=== PATIENT | female | born 1985 | race American Indian/Alaskan Native ===

== ENCOUNTER 2017-08-23 07:31 | Emergency (ER) | payer OTHER ==
[2017-08-23 07:49] VITALS: BP 116/76
[2017-08-23 08:14] LABS: Basophils % (Auto) 1.4 % (0.0-1.8); Eosinophils % (Auto) 2.9 % (0.0-4.3); Hematocrit 38.8 % (30.3-42.9); Hemoglobin 12.7 gm/dl (10.1-14.3); Mean Corpuscular HGB Conc 33 % (30-34); Mean Corpuscular Hemoglobin 29 pg (28-32); Mean Corpuscular Volume 89 fl (79-97); Platelet Count 258 K/mm3 (140-440); Red Blood Count 4.37 M/mm3 (3.65-5.03); Red Cell Distribution Width 14.9 % (13.2-15.2); White Blood Count 4.2 K/mm3 (4.5-11.0)
[2017-08-23 08:40] LABS: Alanine Aminotransferase 11 units/L (7-56); Albumin 4.4 g/dL (3.9-5); Albumin/Globulin Ratio 1.2 %; Anion Gap 18 mmol/L; BUN/Creatinine Ratio 10; Blood Urea Nitrogen 6 mg/dL (7-17); Calcium 9.1 mg/dL (8.4-10.2); Carbon Dioxide 26 mmol/L (22-30); Chloride 102.3 mmol/L (98-107); Glucose 107 mg/dL (65-100); Lipase 22 units/L (13-60); Potassium 3.6 mmol/L (3.6-5.0); Sodium 143 mmol/L (137-145)
[2017-08-23 10:07] LABS: Alkaline Phosphatase 61 units/L (35-129)
== END 2017-08-23 09:05 | disposition left against medical advice (07) ==
LOC: ED 07:31
DX: R11.10 Vomiting, unspecified (principal); Z53.21 Procedure and treatment not carried out due to patient leaving prior to being seen by health care provider
CPT/HCPCS: 36415; 80053; 83690; 84703; 85025

== ENCOUNTER 2019-08-02 12:54 | Inpatient (IN) | payer MEDICAID, OTHER ==
[2019-08-02] MEDS ORDERED: TERBUTALINE 1 MG/1 ML INJ SUB-Q PRN (14:14)
[2019-08-02] MEDS ORDERED: LIDOCAINE (2%) 20 MG/1 ML VIAL 20 ML MDV INFILTRATI ONE (14:14)
[2019-08-02] MEDS ORDERED: ePHEDrine SULFATE 50 MG/1 ML INJ IV PRN ×2 (14:14→14:17)
[2019-08-02] MEDS ORDERED: TERBUTALINE 1 MG/1 ML INJ IVP PRN (14:14)
[2019-08-02] MEDS ORDERED: MINERAL OIL 30 ML ORAL LIQD PO PRN (14:14)
[2019-08-02] MEDS ORDERED: ONDANSETRON 4 MG/2 ML INJ IV PRN (14:17)
[2019-08-02] MEDS ORDERED: BUTORPHANOL 2 MG/1 ML INJ IV PRN (14:17)
[2019-08-02] MEDS ORDERED: NALOXONE 0.4 MG/1 ML INJ IV PRN (14:17)
[2019-08-02] MEDS ORDERED: LACTATED RINGERS 1,000 ML IV SCH (15:00)
[2019-08-02] MEDS ORDERED: OXYTOCIN DRIP 30 UNITS/500 ML BAG IV SCH (15:00)
[2019-08-02 15:01] LABS: Hematocrit 31.6 % (30.3-42.9); Hemoglobin 9.8 gm/dl (10.1-14.3); Mean Corpuscular HGB Conc 31 % (30-34); Mean Corpuscular Volume 73 fl (79-97); Platelet Count 213 K/mm3 (140-440); Red Blood Count 4.34 M/mm3 (3.65-5.03); Red Cell Distribution Width 17.8 % (13.2-15.2)
--- NOTE | 2019-08-02 15:46 | History and Physical Report ---
History of Present Illness Date of examination: 08/02/19 Date of admission: 08/02/19 13:02 Chief complaint: Early Labor History of present illness: Early entry to care; course complicated by LGSIL pap, Vitamin D Deficiency, and a Increased risk for SMA. Past History Past Medical History: no pertinent history [employer] History: abnormal PAP smear, trichomonas Family/Genetic History: diabetes, hypertension Social history: no significant social history, single - Obstetrical History Expected Date of Delivery: 08/07/19 Actual Gestation: 39 Week(s) 2 Day(s) : 2 Para: 1 Hx # Term Pregnancies: 1 Number of Living Children: 1 #1 Infant Gender: Male year: Birthweight: 3.742 kg Method of Delivery: Vaginal Gestational age at delivery: 40 Complications: none Medications and Allergies Allergies Allergy/AdvReac Type Severity Reaction Status Date / Time No Known Allergies Allergy Verified 08/02/19 14:19 Home Medications Medication Instructions Recorded Confirmed Last Taken Type HYDROcodone/APAP 5-325 [[place] 1 each PO Q6HR PRN #12 tablet 03/26/15 Unknown Rx 5/325] Promethazine [Phenergan] 25 mg PO Q6H PRN #12 tablet 03/26/15 Unknown Rx Active Meds: Active Medications Butorphanol Tartrate (Stadol) 2 mg IV Q2H PRN PRN Reason: Pain , Severe (7-10) Ephedrine Sulfate (Ephedrine Sulfate) 10 mg IV Q2M PRN PRN Reason: Hypotension Ephedrine Sulfate (Ephedrine Sulfate) 10 mg IV Q2M PRN PRN Reason: Hypotension Oxytocin/Sodium Chloride (Pitocin/Ns 20 Unit/1000ml Drip) 20 units in 1,000 mls @ 125 mls/hr IV DIRECT KATIE Oxytocin/Sodium Chloride (Pitocin/Ns 30 Unit/500ml) 30 units in 500 mls @ 4 mls/hr IV TITR KATIE; Protocol Lactated Ringer's (Lactated Ringers) 1,000 mls @ 125 mls/hr IV DIRECT KATIE Mineral Oil (Mineral Oil) 30 ml PO QHS PRN PRN Reason: Constipation Naloxone HCl (Narcan 0.4 Mg/1 Ml) 0.1 mg IV Q2MIN PRN PRN Reason: Res Rate </= 8 or 02 SAT < 92% Ondansetron HCl (Zofran) 4 mg IV Q8H PRN PRN Reason: Nausea And Vomiting Terbutaline Sulfate (Brethine) 0.25 mg SUB-Q ONCE PRN PRN Reason: Hyperstimulation/Hypertonicity Terbutaline Sulfate (Brethine) 0.25 mg IVP ONCE PRN PRN Reason: Hyperstimulation/Hypertonicity Review of Systems All systems: negative - Vital Signs Vital signs: Vital Signs Pulse BP 121 H 127/82 08/02/19 13:37 08/02/19 13:37 Temp Pulse Resp BP Pulse Ox 97.9 F 109 H 16 127/79 08/02/19 15:00 08/02/19 14:50 08/02/19 15:00 08/02/19 14:50 - Physical Exam Breasts: Positive: normal Cardiovascular: Regular rate Lungs: Positive: Clear to auscultation, Normal air movement Abdomen: Positive: normal appearance, soft, normal bowel sounds Genitourinary (Female): Positive: normal external genitalia, normal perenium Vagina: Positive: normal moisture Uterus: Positive: enlarged Anus/Rectum: Positive: normal perianal skin Extremities: Positive: normal - Obstetrical FHR: category 1 Uterine Contraction Monitor Mode: External Cervical Dilatation: 5 (Intact; VTX) Cervical Effacement Percentage: 90 station: -1 Uterine Contraction Pattern: Irregular Uterine Tone Measurement Phase: Resting Uterine Contraction Intensity: Moderate Results Result Diagrams: 08/02/19 14:33 Abnormal lab results 08/02/19 Range/Units 14:33 Hgb 9.8 L (10.1-14.3) gm/dl MCV 73 L (79-97) fl MCH 23 L (28-32) pg RDW 17.8 H (13.2-15.2) % All other labs normal. Assessment and Plan A: IUP @ 39 2/7 weeks Category I Tracing Early Labor GBS Negative P: Admit to L&D per Routine Orders Pitocin Augmentation
[2019-08-03] MEDS ORDERED: ePHEDrine SULFATE 50 MG/1 ML INJ IV PRN (02:56)
[2019-08-03] MEDS ORDERED: NALOXONE 2 MG/2 ML INJ IV PRN (02:56)
--- NOTE | 2019-08-03 02:59 | Anesthesia Consultation ---
Anesthesia Consult and Med Hx Date of service: 08/03/19 - Airway Anesthetic Teeth Evaluation: Good ROM Head & Neck: Adequate Mental/Hyoid Distance: Adequate Mallampati Class: Class II Intubation Access Assessment: Probably Good - Pulmonary Exam CTA: Yes - Cardiac Exam Cardiac Exam: RRR - Pre-Operative Health Status ASA Pre-Surgery Classification: ASA2 Proposed Anesthetic Plan: Epidural - Pulmonary Hx Smoking: No Hx Asthma: No Hx Respiratory Symptoms: No SOB: No COPD: No Home Oxygen Therapy: No Hx Pneumonia: No Hx Sleep Apnea: No - Cardiovascular System Hx Hypertension: No Hx Coronary Artery Disease: No Hx Heart Attack/AMI: No Hx Angina: No Hx Percutaneous Transluminal Coronary Angioplasty (PTCA): No Hx Cardia Arrhythmia: No Hx Pacemaker: No Hx Internal Defibrillator: No Hx Valvular Heart Disease: No Hx Heart Murmur: No Hx Peripheral Vascular Disease: No - Central Nervous System Hx Neuromuscular Disorder: No Hx Seizures: No CVA: No Hx Back Pain: Yes (history of scoliosis) Hx Psychiatric Problems: No - Gastrointestinal Hx Ulcer: No Hx Gastroesophageal Reflux Disease: Yes - Endocrine Hx Renal Disease: No Hx End Stage Renal Disease: No Hx Cirrhosis: No Hx Liver Disease: No Hx Insulin Dependent Diabetes: No Hx Non-Insulin Dependent Diabetes: No Hx Thyroid Disease: No Hx Hypothyroidism: No Hx Hyperthyroidism: No - Hematic Hx Anemia: No Hx Sickle Cell Disease: No - Other Systems Hx Alcohol Use: No Hx Substance Use: No Hx Cancer: No Hx Obesity: No
[2019-08-03] MEDS ORDERED: fentaNYL-BUPIV 2 MCG/ML-0.125% 200 MCG/100 ML BAG EPIDURAL SCH (03:00)
--- NOTE | 2019-08-03 05:48 | Progress Note ---
Assessment and Plan A: IUP @ 39 3/7 weeks Category I Tracing Early Labor GBS Negative P: AROM Continue Pitocin Augmentation Subjective - Subjective Date of service: 08/03/19 Interval history: Early entry to care; course complicated by LGSIL pap, Vitamin D Deficiency, and a Increased risk for SMA. Patient reports: other (Resting Well Under Epidural) Objective - Vital Signs Vital Signs: Vital Signs - 12hr 08/02/19 08/02/19 08/02/19 19:20 19:24 19:29 Temperature 99.0 F Pulse Rate 111 H 111 H 119 H Respiratory 22 Rate Blood Pressure 130/84 Blood Pressure 130/84 [Left] O2 Sat by Pulse 100 99 Oximetry 08/02/19 08/02/19 08/02/19 19:34 19:39 19:44 Temperature Pulse Rate 104 H 111 H 120 H Respiratory Rate Blood Pressure Blood Pressure [Left] O2 Sat by Pulse 100 99 100 Oximetry 08/02/19 08/02/19 08/02/19 19:49 19:54 20:19 Temperature Pulse Rate 111 H 104 H 106 H Respiratory Rate Blood Pressure Blood Pressure [Left] O2 Sat by Pulse 100 100 99 Oximetry 08/02/19 08/02/19 08/02/19 20:24 20:29 20:34 Temperature Pulse Rate 105 H 115 H 114 H Respiratory Rate Blood Pressure Blood Pressure [Left] O2 Sat by Pulse 100 100 99 Oximetry 08/02/19 08/02/19 08/02/19 20:39 20:44 20:49 Temperature Pulse Rate 107 H 103 H 106 H Respiratory Rate Blood Pressure 131/83 Blood Pressure [Left] O2 Sat by Pulse 100 100 100 Oximetry 08/02/19 08/02/19 08/02/19 20:54 20:59 21:04 Temperature Pulse Rate 102 H 100 H 101 H Respiratory Rate Blood Pressure Blood Pressure [Left] O2 Sat by Pulse 100 100 100 Oximetry 08/02/19 08/02/19 08/02/19 21:09 21:14 21:19 Temperature Pulse Rate 91 H 97 H 103 H Respiratory Rate Blood Pressure Blood Pressure [Left] O2 Sat by Pulse 100 100 100 Oximetry 08/02/19 08/02/19 08/02/19 21:20 21:24 21:29 Temperature Pulse Rate 102 H 100 H 99 H Respiratory Rate Blood Pressure 130/84 Blood Pressure [Left] O2 Sat by Pulse 100 100 Oximetry 08/02/19 08/02/19 08/02/19 21:34 21:39 21:44 Temperature Pulse Rate 97 H 109 H 109 H Respiratory Rate Blood Pressure Blood Pressure [Left] O2 Sat by Pulse 100 99 99 Oximetry 08/02/19 08/02/19 08/02/19 21:49 21:54 21:59 Temperature Pulse Rate 101 H 98 H 102 H Respiratory Rate Blood Pressure 133/84 Blood Pressure [Left] O2 Sat by Pulse 100 100 99 Oximetry 08/02/19 08/02/19 08/02/19 22:08 22:13 22:18 Temperature Pulse Rate 103 H 106 H 97 H Respiratory Rate Blood Pressure Blood Pressure [Left] O2 Sat by Pulse 99 96 96 Oximetry 08/02/19 08/02/19 08/02/19 22:19 22:23 22:28 Temperature Pulse Rate 89 95 H 87 Respiratory Rate Blood Pressure 131/78 Blood Pressure [Left] O2 Sat by Pulse 98 95 Oximetry 08/02/19 08/02/19 08/02/19 22:32 22:33 22:38 Temperature Pulse Rate 92 H 86 85 Respiratory Rate Blood Pressure Blood Pressure [Left] O2 Sat by Pulse 91 97 98 Oximetry 08/02/19 08/02/19 08/02/19 22:43 22:48 22:49 Temperature Pulse Rate 88 83 86 Respiratory Rate Blood Pressure 125/69 Blood Pressure [Left] O2 Sat by Pulse 97 97 Oximetry 08/02/19 08/02/19 08/02/19 22:53 22:58 23:02 Temperature Pulse Rate 90 82 85 Respiratory Rate Blood Pressure Blood Pressure [Left] O2 Sat by Pulse 97 95 94 Oximetry 08/02/19 08/02/19 08/02/19 23:03 23:08 23:13 Temperature Pulse Rate 82 82 83 Respiratory Rate Blood Pressure Blood Pressure [Left] O2 Sat by Pulse 96 96 97 Oximetry 08/02/19 08/02/19 08/02/19 23:18 23:19 23:23 Temperature Pulse Rate 80 77 82 Respiratory Rate Blood Pressure 135/66 Blood Pressure [Left] O2 Sat by Pulse 96 94 96 Oximetry 08/02/19 08/02/19 08/02/19 23:28 23:33 23:38 Temperature Pulse Rate 78 76 81 Respiratory Rate Blood Pressure Blood Pressure [Left] O2 Sat by Pulse 97 96 96 Oximetry 08/02/19 08/02/19 08/02/19 23:43 23:48 23:49 Temperature Pulse Rate 83 79 78 Respiratory Rate Blood Pressure Blood Pressure [Left] O2 Sat by Pulse 96 96 94 Oximetry 08/02/19 08/02/19 08/02/19 23:50 23:53 23:58 Temperature Pulse Rate 85 78 78 Respiratory Rate Blood Pressure 118/71 Blood Pressure [Left] O2 Sat by Pulse 98 98 Oximetry 08/03/19 08/03/19 08/03/19 00:03 00:08 00:13 Temperature Pulse Rate 90 87 79 Respiratory Rate Blood Pressure Blood Pressure [Left] O2 Sat by Pulse 97 97 97 Oximetry 08/03/19 08/03/19 08/03/19 00:18 00:19 00:23 Temperature Pulse Rate 87 82 88 Respiratory Rate Blood Pressure 121/74 Blood Pressure [Left] O2 Sat by Pulse 97 100 Oximetry 08/03/19 08/03/19 08/03/19 00:28 00:33 00:38 Temperature Pulse Rate 80 83 82 Respiratory Rate Blood Pressure Blood Pressure [Left] O2 Sat by Pulse 97 98 96 Oximetry 08/03/19 08/03/19 08/03/19 00:43 00:48 00:49 Temperature Pulse Rate 82 89 85 Respiratory Rate Blood Pressure 121/67 Blood Pressure [Left] O2 Sat by Pulse 98 97 Oximetry 08/03/19 08/03/19 08/03/19 00:53 00:58 01:03 Temperature Pulse Rate 92 H 89 94 H Respiratory Rate Blood Pressure Blood Pressure [Left] O2 Sat by Pulse 97 97 99 Oximetry 08/03/19 08/03/19 08/03/19 01:08 01:13 01:18 Temperature Pulse Rate 83 91 H 87 Respiratory Rate Blood Pressure Blood Pressure [Left] O2 Sat by Pulse 98 98 98 Oximetry 08/03/19 08/03/19 08/03/19 01:20 01:23 01:28 Temperature Pulse Rate 79 89 85 Respiratory Rate Blood Pressure 127/73 Blood Pressure [Left] O2 Sat by Pulse 97 97 Oximetry 08/03/19 08/03/19 08/03/19 01:33 01:38 01:43 Temperature Pulse Rate 89 89 108 H Respiratory Rate Blood Pressure Blood Pressure [Left] O2 Sat by Pulse 96 97 96 Oximetry 08/03/19 08/03/19 08/03/19 01:48 01:49 01:53 Temperature Pulse Rate 87 93 H 85 Respiratory Rate Blood Pressure 136/89 Blood Pressure [Left] O2 Sat by Pulse 97 97 Oximetry 08/03/19 08/03/19 08/03/19 01:58 02:03 02:08 Temperature Pulse Rate 92 H 87 98 H Respiratory Rate Blood Pressure Blood Pressure [Left] O2 Sat by Pulse 98 97 98 Oximetry 08/03/19 08/03/19 08/03/19 02:13 02:18 02:23 Temperature Pulse Rate 98 H 84 92 H Respiratory Rate Blood Pressure Blood Pressure [Left] O2 Sat by Pulse 100 100 100 Oximetry 08/03/19 08/03/19 08/03/19 02:28 02:33 02:38 Temperature Pulse Rate 100 H 92 H 92 H Respiratory Rate Blood Pressure Blood Pressure [Left] O2 Sat by Pulse 100 100 100 Oximetry 08/03/19 08/03/19 08/03/19 02:40 02:41 02:43 Temperature Pulse Rate 102 H 81 102 H Respiratory Rate Blood Pressure 138/72 131/69 Blood Pressure [Left] O2 Sat by Pulse 75 L 100 Oximetry 08/03/19 08/03/19 08/03/19 02:46 02:48 02:49 Temperature Pulse Rate 93 H 119 H 120 H Respiratory Rate Blood Pressure 131/72 129/70 Blood Pressure [Left] O2 Sat by Pulse 100 Oximetry 08/03/19 08/03/19 08/03/19 02:52 02:53 02:55 Temperature Pulse Rate 114 H 122 H 117 H Respiratory Rate Blood Pressure 135/71 155/80 Blood Pressure [Left] O2 Sat by Pulse 100 Oximetry 08/03/19 08/03/19 08/03/19 02:58 03:01 03:03 Temperature Pulse Rate 106 H 108 H 100 H Respiratory Rate Blood Pressure 141/68 126/66 Blood Pressure [Left] O2 Sat by Pulse 100 100 Oximetry 08/03/19 08/03/19 08/03/19 03:04 03:07 03:08 Temperature Pulse Rate 98 H 90 90 Respiratory Rate Blood Pressure 131/65 132/69 Blood Pressure [Left] O2 Sat by Pulse 99 Oximetry 08/03/19 08/03/19 08/03/19 03:10 03:13 03:18 Temperature Pulse Rate 104 H 87 85 Respiratory Rate Blood Pressure 131/76 123/68 Blood Pressure [Left] O2 Sat by Pulse 100 99 Oximetry 08/03/19 08/03/19 08/03/19 03:23 03:28 03:33 Temperature Pulse Rate 88 89 92 H Respiratory Rate Blood Pressure 120/65 Blood Pressure [Left] O2 Sat by Pulse 98 98 97 Oximetry 08/03/19 08/03/19 08/03/19 03:38 03:43 03:48 Temperature Pulse Rate 87 90 94 H Respiratory Rate Blood Pressure 116/62 Blood Pressure [Left] O2 Sat by Pulse 97 97 97 Oximetry 08/03/19 08/03/19 08/03/19 03:53 03:58 04:00 Temperature Pulse Rate 94 H 86 88 Respiratory Rate Blood Pressure 116/60 Blood Pressure [Left] O2 Sat by Pulse 97 96 Oximetry 08/03/19 08/03/19 08/03/19 04:03 04:08 04:13 Temperature Pulse Rate 90 86 92 H Respiratory Rate Blood Pressure 114/59 Blood Pressure [Left] O2 Sat by Pulse 96 95 96 Oximetry 08/03/19 08/03/19 08/03/19 04:18 04:23 04:28 Temperature Pulse Rate 105 H 94 H 90 Respiratory Rate Blood Pressure 114/57 Blood Pressure [Left] O2 Sat by Pulse 97 97 98 Oximetry 08/03/19 08/03/19 08/03/19 04:30 04:33 04:38 Temperature 97.7 F Pulse Rate 80 88 Respiratory Rate Blood Pressure Blood Pressure [Left] O2 Sat by Pulse 97 97 Oximetry 08/03/19 08/03/19 08/03/19 04:43 04:48 04:53 Temperature Pulse Rate 90 108 H 83 Respiratory Rate Blood Pressure 114/63 Blood Pressure [Left] O2 Sat by Pulse 96 98 100 Oximetry 08/03/19 08/03/19 08/03/19 04:58 05:03 05:08 Temperature Pulse Rate 89 85 82 Respiratory Rate Blood Pressure Blood Pressure [Left] O2 Sat by Pulse 100 100 98 Oximetry 08/03/19 08/03/19 08/03/19 05:13 05:18 05:23 Temperature Pulse Rate 83 83 85 Respiratory Rate Blood Pressure Blood Pressure [Left] O2 Sat by Pulse 97 96 96 Oximetry 08/03/19 08/03/19 08/03/19 05:25 05:28 05:33 Temperature Pulse Rate 88 80 81 Respiratory Rate Blood Pressure 100/61 Blood Pressure [Left] O2 Sat by Pulse 97 96 Oximetry 08/03/19 08/03/19 05:38 05:43 Temperature Pulse Rate 104 H 97 H Respiratory Rate Blood Pressure Blood Pressure [Left] O2 Sat by Pulse 99 100 Oximetry - Exam Breasts: normal Cardiovascular: Regular rate Lungs: Clear to auscultation, Normal air movement Abdomen: Present: normal appearance, soft, normal bowel sounds Uterus: Present: normal, firm, fundal height above umbilicus FHR: category 1 Uterine Contraction Monitor Mode: External Cervical Dilatation: 6 (Moderate amount of clear fluid upon AROM @ 0542) Cervical Effacement Percentage: 80 station: -1 Uterine Contraction Pattern: Irregular Uterine Tone Measurement Phase: Resting Uterine Contraction Intensity: Moderate Extremities: edema (pedal) - Labs Labs: Abnormal Labs 08/02/19 14:33 Hgb 9.8 L MCV 73 L MCH 23 L RDW 17.8 H Laboratory Results - last 24 hr 08/02/19 08/02/19 14:33 14:36 WBC 7.4 RBC 4.34 Hgb 9.8 L Hct 31.6 MCV 73 L MCH 23 L MCHC 31 RDW 17.8 H Plt Count 213 Blood Type O POSITIVE Antibody Screen Negative
[2019-08-03] MEDS: OXYTOCIN 20 UNIT/1000ML DRIP 20 UNITS/1,000 ML BAG IV SCH ×2 (07:02→08:16)
--- NOTE | 2019-08-03 07:18 | Procedure Note ---
OB Delivery Note - Delivery Date of Delivery: 08/03/19 (0651) Surgeon: FORREST BUSBY Estimated blood loss: 100cc - Vaginal Delivery presentation: vertex Delivery position: OA Intrapartum events: prolonged active phase Delivery induction: none Delivery augmentation: rupture of membranes, pitocin Delivery monitor: external FHT, external uterine Route of delivery: Delivery placenta: spontaneous Delivery cord: true knot Episiotomy: none Delivery laceration: none Anesthesia: epidural Delivery comments: of a live 7'3 female over a intact perineum under epidural anesthesia with Apgars of 8 and 9 at 0651 on 08/03/2019. directly to maternal abd/chest, skin to skin contact. True knot observed in the cord. Spontaneous delivery of placenta complete and intact with [place] side presenting at 0657. Fundus is firm and midline located 4 below the U. Lochia is scant. Delayed cord clamping and cutting; Cord cut by the Father of the Baby. Cord blood collected. - A at 1 minute: 8 at 5 minutes: 9 Gender: Female (7'3)
[2019-08-03] MEDS ORDERED: diphenhydrAMINE 25 MG CAP PO PRN (07:30)
[2019-08-03] MEDS ORDERED: HYDROcodone/ACETAMINOPHEN 5-325 MG TAB PO PRN (08:00)
[2019-08-03] MEDS: IBUPROFEN 600 MG TAB PO SCH ×3 (11:44→21:54)
[2019-08-03] MEDS: FERROUS SULFATE 325 MG TAB PO SCH ×2 (16:15→21:55)
[2019-08-03] MEDS ORDERED: LANOLIN/ZINC/DIMETHICONE (LANSINOH) 7 GM TP PRN (17:53)
[2019-08-03 19:39] LABS: Hematocrit 28.2 % (30.3-42.9)
[2019-08-04] MEDS: IBUPROFEN 600 MG TAB PO SCH ×4 (05:45→14:00)
[2019-08-04] MEDS: FERROUS SULFATE 325 MG TAB PO SCH (10:00)
--- NOTE | 2019-08-04 10:53 | Progress Note ---
Assessment and Plan A: PPD#1 s/p Stable P: Routine PP care anticipate discharge home in am Subjective - Subjective Date of service: 08/04/19 Principal diagnosis: PPD#1 s/p Interval history: See H&P and delivery note Patient reports: appetite normal, voiding normally, pain well controlled, flatus, ambulating normally, no bowel movement [place]: doing well, nursing well Objective - Vital Signs Latest vital signs: Vital Signs Temp Pulse Resp BP Pulse Ox 08/04/19 09:09 98.7 F 85 18 130/76 100 08/04/19 00:54 98.0 F 88 18 133/84 98 08/03/19 16:00 97.9 F 104 H 20 122/80 99 08/03/19 12:41 98.4 F 91 H 18 113/79 98 Intake and Output 08/03/19 08/04/19 08/04/19 23:59 07:59 15:59 Intake Total 360 480 Output Total 300 Balance 60 480 Intake: Oral 240 Intake, Free Water 120 480 Output: Urine 300 Void 300 Other: Total, Intake Amount 240 Total, Output Amount 300 # Voids Void 1 1 - Exam Breasts: Present: normal, Cardiovascular: Present: Regular rate, Normal S1, Normal S2, No murmurs Lungs: Present: Clear to auscultation, Normal air movement Abdomen: Present: normal appearance, soft, normal bowel sounds. Absent: distention Vulva: both: normal Uterus: Present: firm, fundal height below umbilicus (-1) Extremities: Present: normal Deep Tendon Reflex Grade: Normal +2 - Labs Labs: Abnormal lab results 08/03/19 Range/Units 19:22 Hgb 9.0 L (10.1-14.3) gm/dl Hct 28.2 L (30.3-42.9) %
--- NOTE | 2019-08-04 10:55 | Discharge Summary ---
Providers - Providers Date of Admission: 08/02/19 13:02 Date of discharge: 08/05/19 Attending physician: KATHI GOODSON MD Primary care physician: KATHI GOODSON MD Hospitalization Reason for admission: active labor, IUP at term Delivery: Procedure details: see delivery note Episiotomy: none Laceration: none Other procedures: none complications: none Discharge diagnosis: IUP at term delivered [place] baby: female Condition at discharge: Good Disposition: DC-01 TO HOME OR SELFCARE Plan - Provider Discharge Summary Activity: routine, no sex for 6 weeks, no heavy lifting 4 weeks, no strenuous exercise Diet: routine Instructions: routine Additional instructions: [] Smoking cessation referral if applicable(refer to patient education folder for contact #) [] Refer to [facility]'s [facility] Booklet Call your doctor immediately for: * Fever > 100.5 * Heavy vaginal bleeding ( >1 pad per hour) * Severe persistent headache * Shortness of breath * Reddened, hot, painful area to leg or breast * Drainage or odor from incision. * Keep incision clean and dry at all times and follow doctor's instructions regarding bathing/showering - Follow up plan Follow up: KATHI GOODSON MD [Primary Care Provider] - 6 Weeks
[2019-08-05] MEDS: FERROUS SULFATE 325 MG TAB PO SCH ×2 (02:11→09:00)
[2019-08-05] MEDS: IBUPROFEN 600 MG TAB PO SCH (09:00)
[2019-08-05 12:54] VITALS: BP 137/81
== END 2019-08-05 13:45 | disposition home or self-care (01) | DRG 775 ==
LOC: TRG 12:54 → LD 13:02 → OB 08-03 10:27
PROVIDERS: ADMIT Obstetrics & Gynecology; ATTEND Obstetrics & Gynecology
PROC: 10E0XZZ Delivery of Products of Conception, External Approach (ICD-10-PCS; principal; 2019-08-03)
PROC: 3E0R3BZ Introduction of Anesthetic Agent into Spinal Canal, Percutaneous Approach (ICD-10-PCS; 2019-08-03)
PROC: 00HU33Z Insertion of Infusion Device into Spinal Canal, Percutaneous Approach (ICD-10-PCS; 2019-08-03)
PROC: 10907ZC Drainage of Amniotic Fluid, Therapeutic from Products of Conception, Via Natural or Artificial Opening (ICD-10-PCS; 2019-08-03)
DX: O69.2XX0 Labor and delivery complicated by other cord entanglement, with compression, not applicable or unspecified (principal); O99.62 Diseases of the digestive system complicating childbirth; K21.9 Gastro-esophageal reflux disease without esophagitis; Z3A.39 39 weeks gestation of pregnancy; Z37.0 Single live birth; Z82.49 Family history of ischemic heart disease and other diseases of the circulatory system; Z83.3 Family history of diabetes mellitus; Z79.899 Other long term (current) drug therapy
CPT/HCPCS: 36415; 85014; 85018; 85027; 86592; 86850; 86900; 86901; G0378; A6250; J0595; J2405; J2590; J7120